=== PATIENT | female | born 1985 | race Caucasian/White ===

== ENCOUNTER 2017-08-23 22:00 | Inpatient (IN) | END 2017-08-28 22:35 | DRG 871 ==

== ENCOUNTER 2017-08-30 11:30 | Inpatient (IN) | END 2017-09-02 11:10 | disposition left against medical advice (07) | DRG 871 ==

== ENCOUNTER 2018-01-28 13:49 | Inpatient (IN) | END 2018-01-29 10:51 | disposition left against medical advice (07) | DRG 603 ==